=== PATIENT | male | born 1945 | race Caucasian/White ===

== ENCOUNTER 2018-05-26 19:32 | Inpatient (IN) | payer MEDICARE, OTHER ==
[~2018-05-26] VITALS: Ht 172.7 cm; Wt 86.0 kg
[~2018-05-26 19:32] MED LIST: AMLO10TA2 PO; ASPI-696 PO; ATEN50TA41 PO; CLON-275 PO; LEVO750T26 PO; LISI-170 PO; PRED20TA PO; SIMV20TA3 PO
[2018-05-26] MEDS ORDERED: SODIUM CHLORIDE 0.9% 1,000ML IVBOLUS ONE (20:00)
[2018-05-26] MEDS ORDERED: FENTANYL PF 100 MCG/2ML ONE (20:12)
[2018-05-26 20:16] LABS: ALANINE AMINOTRANSFERASE 15 U/L (12-78); ALBUMIN 2.8 g/dL (3.4-5.0); ANION GAP 8 mmol/L (5-15); CALCIUM 8.4 mg/dL (8.5-10.1); CHLORIDE 110 mmol/L (98-107); CREATININE 1.45 mg/dL (0.7-1.3)
[2018-05-26 20:18] LABS: ALKALINE PHOSPHATASE 75 U/L (45-117); BILIRUBIN,TOTAL 0.6 mg/dL (0.2-1.0); TOTAL PROTEIN 6.1 g/dL (6.4-8.2)
[2018-05-26 20:19] LABS: MEAN CORPUSCULAR HEMOGLOBIN 35.2 pg (27.5-34.5); MEAN CORPUSCULAR HGB CONC 34.7 g/dL (33.2-36.2); MEAN CORPUSCULAR VOLUME 101.6 fL (81-97); MEAN PLATELET VOLUME 9.9 fL (7.4-10.4); PLATELET COUNT 207 x10^3/uL (130-400); RED BLOOD COUNT 3.49 x10^6/uL (4.38-5.82); RED CELL DISTRIBUTION WIDTH 12.5 % (9.4-14.8)
[2018-05-26 20:23] LABS: INTERNATIONAL NORMALIZED RATIO 0.99 (0.93-1.1); PROTHROMBIN TIME 10.3 Seconds (9.6-11.5)
[2018-05-26] MEDS ORDERED: PROTAMINE SULFATE 10 MG/ML, 5ML ONE (20:28)
[2018-05-26] MEDS ORDERED: HEPARIN 1,000 UNITS/ML, 30ML ONE (20:28)
[2018-05-26] MEDS ORDERED: HEPARIN 1,000 UNITS/ML, 10ML ONE (20:28)
[2018-05-26] MEDS ORDERED: THROMBIN 20,000 UNIT VIAL TP ONE (20:28)
[2018-05-26] MEDS ORDERED: BACITRACIN 50,000 UNIT ONE (20:29)
[2018-05-26 20:45] LABS: MD YES
[2018-05-26 20:48] LABS: <PLATELET ESTIMATE> ADEQUATE; <PLT MORPHOLOGY> NORMAL PLT MORPH; <RBC MORPHOLOGY> NORMAL; BAND#(MANUAL) 1.31 x10^3/uL; BANDS%(MANUAL) 6 % (0-7); BASOS#(MANUAL) 0.22 x10^3/uL (0-0.1); BASOS% (MANUAL) 1 % (0-1); EOS#(MANUAL) 0.22 x10^3/uL (0.0-0.4); EOS% (MANUAL) 1 % (1-7); LYMPH#(MANUAL) 3.07 x10^3/uL (1-3.4); LYMPHS% (MANUAL) 14 % (22-44); METAMYELOCYTES# (MANUAL) 0.44 x10^3/uL (0-0); METAMYELOCYTES% (MANUAL) 2 % (0-1); MONOS#(MANUAL) 0.66 x10^3/uL (0.3-2.7); MONOS% (MANUAL) 3 % (2-9); MYELOCYTES# (MANUAL) 0.22 x10^3/uL (0-0); MYELOCYTES% (MANUAL) 1 % (0-0); SEG#(MANUAL) 15.77 x10^3/uL (1.8-6.8); SEGS% (MANUAL) 72 % (42-75)
[2018-05-26 20:49] VITALS: BP 92/52
[2018-05-26] MEDS ORDERED: niCARDipine 2.5 MG/ML, 10ML ONE (20:52)
[2018-05-26] MEDS ORDERED: ROCURONIUM 10 MG/ML,10ML ONE (20:52)
[2018-05-26] MEDS ORDERED: FENTANYL PF 250 MCG/5ML ONE (20:52)
[2018-05-26] MEDS ORDERED: MIDAZOLAM 1 MG/ML, 2ML ONE (20:52)
[2018-05-26] MEDS ORDERED: EPINEPHRINE SYRINGE 0.1 MG/ML, 10ML ONE (20:52)
[2018-05-26] MEDS ORDERED: ETOMIDATE 20 MG/10 ML ONE (20:52)
[2018-05-26] MEDS ORDERED: CEFAZOLIN 1,000 MG ONE (20:52)
[2018-05-26] MEDS ORDERED: NITROGLYCERIN/D5W PMX 50 MG/250 ML ONE (20:52)
[2018-05-26] MEDS ORDERED: SODIUM BICARB 8.4%, 50ML SYRINGE ONE ×3 (20:52)
[2018-05-26] MEDS ORDERED: CALCIUM CHLORIDE 10%, 10ML SYR ONE ×3 (20:52)
[2018-05-26] MEDS ORDERED: NOREPINEPHRINE 1 MG/ML, 4ML ONE (20:58)
[2018-05-26 22:17] LABS: MEAN CORPUSCULAR HEMOGLOBIN 31.5 pg (27.5-34.5); MEAN CORPUSCULAR HGB CONC 35.5 g/dL (33.2-36.2); MEAN CORPUSCULAR VOLUME 88.8 fL (81-97); RED BLOOD COUNT 2.12 x10^6/uL (4.38-5.82); RED CELL DISTRIBUTION WIDTH 16.8 % (9.4-14.8)
[2018-05-26 22:40] LABS: BASOPHILS # (AUTO) 0.02 x10^3/uL (0-0.1); BASOPHILS % (AUTO) 0 % (0-1); EOSINOPHILS # (AUTO) 0.12 x10^3/uL (0-0.4); EOSINOPHILS % (AUTO) 1 % (1-7); LYMPHOCYTES % (AUTO) 20 % (22-44); MD NO; MEAN CORPUSCULAR HEMOGLOBIN 31.8 pg (27.5-34.5); MEAN CORPUSCULAR HGB CONC 34.9 g/dL (33.2-36.2); MEAN CORPUSCULAR VOLUME 91.2 fL (81-97); MEAN PLATELET VOLUME 8.1 fL (7.4-10.4); MONOCYTES # (AUTO) 0.51 x10^3/uL (0.2-0.8); MONOCYTES % (AUTO) 6 % (2-9); NEUTROPHILS # (AUTO) 6.64 x10^3/uL (1.8-6.8); NEUTROPHILS % (AUTO) 73 % (42-75); PLATELET COUNT 134 x10^3/uL (130-400); RED BLOOD COUNT 2.09 x10^6/uL (4.38-5.82); RED CELL DISTRIBUTION WIDTH 17.2 % (9.4-14.8)
[2018-05-26 22:48] LABS: MD YES; MEAN PLATELET VOLUME 8.7 fL (7.4-10.4); PLATELET COUNT 85 x10^3/uL (130-400)
[2018-05-26 22:51] LABS: BAND#(MANUAL) 0.09 x10^3/uL; BANDS%(MANUAL) 1 % (0-7); EOS#(MANUAL) 0.34 x10^3/uL (0.0-0.4); EOS% (MANUAL) 4 % (1-7); LYMPH#(MANUAL) 2.81 x10^3/uL (1-3.4); LYMPHS% (MANUAL) 33 % (22-44); MONOS#(MANUAL) 0.17 x10^3/uL (0.3-2.7); MONOS% (MANUAL) 2 % (2-9); SEGS% (MANUAL) 60 % (42-75)
[2018-05-26 22:52] LABS: <PLATELET ESTIMATE> DECREASED; <PLT MORPHOLOGY> NORMAL PLT MORPH; ANISOCYTOSIS 1+
[2018-05-26 23:17] VITALS: BP 99/38
[2018-05-26 23:32] LABS: INTERNATIONAL NORMALIZED RATIO 1.36 (0.93-1.1); PROTHROMBIN TIME 14.1 Seconds (9.6-11.5)
[2018-05-26] MEDS ORDERED: PROPOFOL 100 ML IV PRN (23:34)
[2018-05-26] MEDS ORDERED: LABETALOL 5MG/ML, 20ML IVPush PRN (23:45)
[2018-05-26] MEDS ORDERED: LACTATED RINGERS 1,000 ML IV SCH (23:45)
[2018-05-26] MEDS ORDERED: NITROPRUSSIDE 50 MG in SODIUM CHLORIDE 0.9% 248 ML IV PRN (23:45)
[2018-05-26] MEDS ORDERED: ONDANSETRON 2MG/ML, 2ML IV PRN (23:45)
[2018-05-26] MEDS ORDERED: morphine SULFATE 10 MG/ML, 1ML IV PRN (23:45)
[2018-05-26 23:53] LABS: ALANINE AMINOTRANSFERASE 30 U/L (12-78); ALBUMIN 1.8 g/dL (3.4-5.0); ANION GAP 10 mmol/L (5-15); CALCIUM 9.1 mg/dL (8.5-10.1); CHLORIDE 117 mmol/L (98-107); CREATININE 1.39 mg/dL (0.7-1.3)
[2018-05-26 23:55] LABS: ALKALINE PHOSPHATASE 38 U/L (45-117); BILIRUBIN,TOTAL 0.9 mg/dL (0.2-1.0); TOTAL PROTEIN 3.5 g/dL (6.4-8.2)
[2018-05-27] VITALS (8 sets, daily range): BP systolic 76–130; BP diastolic 40–59
[2018-05-27] MEDS ORDERED: SENNA/DOCUSATE TABLET NG PRN
[2018-05-27] MEDS ORDERED: LACTULOSE 20 GM/30 ML UDC NG PRN
[2018-05-27] MEDS ORDERED: LIDOCAINE-MPF 1%, 2ML ENDO PRN
[2018-05-27] MEDS ORDERED: SODIUM CHLORIDE 0.9% 1,000 ML IV SCH
[2018-05-27] MEDS ORDERED: SENNOSIDES 8.8 MG/5 ML ORAL SOL NG PRN
[2018-05-27] MEDS ORDERED: BISACODYL 10 MG SUPP PR PRN
[2018-05-27] MEDS ORDERED: PHARMACY MAY ADJ FOR RENAL FX MC SCH
[2018-05-27] MEDS: EPINEPHRINE 2 MG in SODIUM CHLORIDE 0.9% 248 ML IV PRN ×3 (00:18→07:16)
[2018-05-27] MEDS: PHENYLEPHRINE 20 MG in SODIUM CHLORIDE 0.9% 248 ML IV PRN ×3 (00:23→06:48)
[2018-05-27] MEDS: CEFAZOLIN PMX 1GM/50ML 50 ML IVPB SCH ×2 (00:25→08:08)
[2018-05-27 00:29] LABS: BASOPHILS # (AUTO) 0.01 x10^3/uL (0-0.1); BASOPHILS % (AUTO) 0 % (0-1); EOSINOPHILS # (AUTO) 0.09 x10^3/uL (0-0.4); EOSINOPHILS % (AUTO) 1 % (1-7); LYMPHOCYTES # (AUTO) 1.15 x10^3/uL (1-3.4); LYMPHOCYTES % (AUTO) 9 % (22-44); MD NO; MONOCYTES # (AUTO) 1.05 x10^3/uL (0.2-0.8); MONOCYTES % (AUTO) 8 % (2-9); NEUTROPHILS # (AUTO) 10.75 x10^3/uL (1.8-6.8); NEUTROPHILS % (AUTO) 82 % (42-75)
[2018-05-27] MEDS: FAMOTIDINE 20 MG/2 ML IV SCH ×2 (00:31→13:02)
[2018-05-27 00:40] LABS: MEAN CORPUSCULAR HEMOGLOBIN 31.1 pg (27.5-34.5); MEAN CORPUSCULAR HGB CONC 34.5 g/dL (33.2-36.2); MEAN CORPUSCULAR VOLUME 90.3 fL (81-97); MEAN PLATELET VOLUME 8.6 fL (7.4-10.4); PLATELET COUNT 123 x10^3/uL (130-400); RED BLOOD COUNT 2.98 x10^6/uL (4.38-5.82)
[2018-05-27 00:57] LABS: INTERNATIONAL NORMALIZED RATIO 1.21 (0.93-1.1); PROTHROMBIN TIME 12.5 Seconds (9.6-11.5)
[2018-05-27] MEDS ORDERED: EPINEPHRINE 1 MG/ML, 1ML ONE (01:00)
[2018-05-27] MEDS ORDERED: CALCIUM CHLORIDE 10%, 10ML SYR ONE (01:00)
[2018-05-27] MEDS ORDERED: SODIUM BICARB 8.4%, 50ML SYRINGE ONE (01:00)
[2018-05-27] MEDS ORDERED: EPINEPHRINE SYRINGE 0.1 MG/ML, 10ML ONE (01:00)
[2018-05-27 01:19] LABS: MICROSCOPIC AUTO
[2018-05-27 01:23] LABS: CULTURE INDICATED? YES
[2018-05-27] MEDS ORDERED: NOREPINEPHRINE 16 MG in SODIUM CHLORIDE 0.9% 234 ML IV PRN (02:00)
[2018-05-27 02:29] LABS: BASOPHILS # (AUTO) 0.02 x10^3/uL (0-0.1); BASOPHILS % (AUTO) 0 % (0-1); EOSINOPHILS # (AUTO) 0.02 x10^3/uL (0-0.4); EOSINOPHILS % (AUTO) 0 % (1-7); LYMPHOCYTES # (AUTO) 1.27 x10^3/uL (1-3.4); LYMPHOCYTES % (AUTO) 11 % (22-44); MD NO; MEAN CORPUSCULAR HEMOGLOBIN 31.4 pg (27.5-34.5); MEAN CORPUSCULAR HGB CONC 34.4 g/dL (33.2-36.2); MEAN CORPUSCULAR VOLUME 91.2 fL (81-97); MEAN PLATELET VOLUME 8.5 fL (7.4-10.4); MONOCYTES # (AUTO) 1.21 x10^3/uL (0.2-0.8); MONOCYTES % (AUTO) 10 % (2-9); NEUTROPHILS # (AUTO) 9.45 x10^3/uL (1.8-6.8); NEUTROPHILS % (AUTO) 79 % (42-75); PLATELET COUNT 124 x10^3/uL (130-400); RED BLOOD COUNT 2.97 x10^6/uL (4.38-5.82); RED CELL DISTRIBUTION WIDTH 17.6 % (9.4-14.8)
[2018-05-27 02:37] LABS: ANION GAP 19 mmol/L (5-15); CALCIUM 8.7 mg/dL (8.5-10.1); CHLORIDE 116 mmol/L (98-107); CREATININE 1.89 mg/dL (0.7-1.3)
[2018-05-27] MEDS ORDERED: SODIUM BICARB 8.4%, 50ML SYRINGE IVPush STA ×2 (03:04→05:14)
[2018-05-27] MEDS ORDERED: SODIUM BICARBONATE 1 MEQ/ML, 50ML VIAL ONE (03:09)
[2018-05-27] MEDS: SODIUM CHLORIDE 0.9% 1,000 ML IV SCH ×2 (03:11→13:40)
[2018-05-27] MEDS ORDERED: SODIUM BICARBONATE 8.4% 150 MEQ in DEXTROSE 5% 1,000 ML IV SCH (03:30)
[2018-05-27] MEDS ORDERED: OMNIPAQUE 350 MG/ML, 100ML BOTTLE ONE (04:27)
[2018-05-27 05:51] LABS: ANION GAP 24 mmol/L (5-15); CALCIUM 7.9 mg/dL (8.5-10.1); CHLORIDE 114 mmol/L (98-107); CREATININE 2.14 mg/dL (0.7-1.3)
[2018-05-27] MEDS: PHENYLEPHRINE 80 MG in SODIUM CHLORIDE 0.9% 242 ML IV PRN ×2 (08:09→13:02)
[2018-05-27] MEDS ORDERED: EPINEPHRINE 16 MG in SODIUM CHLORIDE 0.9% 234 ML IV PRN (09:00)
[2018-05-27] MEDS ORDERED: VASOPRESSIN 100 UNIT in SODIUM CHLORIDE 0.9% 495 ML IV PRN (09:30)
[2018-05-27 09:45] LABS: INTERNATIONAL NORMALIZED RATIO 2.08 (0.93-1.1); PROTHROMBIN TIME 21.3 Seconds (9.6-11.5)
[2018-05-27] MEDS ORDERED: FENTANYL PF 100 MCG/2ML ONE (13:44)
[2018-05-27] MEDS ORDERED: FENTANYL PF 100 MCG/2ML IVPush PRN (14:00)
[2018-05-27] MEDS ORDERED: ATROPINE OPHTH SOLN 1%, 5ML PO PRN (17:30)
[2018-05-27] MEDS ORDERED: LORazepam 2 MG/ML, 1ML IVPush PRN ×2 (17:30)
[2018-05-27] MEDS ORDERED: morphine SULFATE 10 MG/ML, 1ML IVPush PRN ×2 (17:30)
[2018-05-28] MEDS ORDERED: SODIUM BICARBONATE 8.4% 150 MEQ in DEXTROSE 5% 1,000 ML IV SCH (03:30)
== END 2018-05-27 18:06 | disposition expired | DRG 270 ==
LOC: OR 20:26 → CCU 23:09 → OR 05-27 00:04 → CCU 05-27 00:16
PROVIDERS: ADMIT Surgery Vascular Surgery; ATTEND Surgery Vascular Surgery
PROC: 04V00DZ Restriction of Abdominal Aorta with Intraluminal Device, Open Approach (ICD-10-PCS; principal; 2018-05-27)
PROC: 30233L1 Transfusion of Nonautologous Fresh Plasma into Peripheral Vein, Percutaneous Approach (ICD-10-PCS; 2018-05-27)
PROC: 30233N1 Transfusion of Nonautologous Red Blood Cells into Peripheral Vein, Percutaneous Approach (ICD-10-PCS; 2018-05-27)
PROC: 30233R1 Transfusion of Nonautologous Platelets into Peripheral Vein, Percutaneous Approach (ICD-10-PCS; 2018-05-27)
PROC: 30233K1 Transfusion of Nonautologous Frozen Plasma into Peripheral Vein, Percutaneous Approach (ICD-10-PCS; 2018-05-27)
PROC: 5A1935Z Respiratory Ventilation, Less than 24 Consecutive Hours (ICD-10-PCS; 2018-05-27)
PROC: 0BH17EZ Insertion of Endotracheal Airway into Trachea, Via Natural or Artificial Opening (ICD-10-PCS; 2018-05-27)
PROC: 03HY32Z Insertion of Monitoring Device into Upper Artery, Percutaneous Approach (ICD-10-PCS; 2018-05-27)
PROC: 4A133B1 Monitoring of Arterial Pressure, Peripheral, Percutaneous Approach (ICD-10-PCS; 2018-05-27)
PROC: 4A133J1 Monitoring of Arterial Pulse, Peripheral, Percutaneous Approach (ICD-10-PCS; 2018-05-27)
DX: I71.3 Abdominal aortic aneurysm, ruptured (principal); J96.00 Acute respiratory failure, unspecified whether with hypoxia or hypercapnia; E87.2 Acidosis; I74.5 Embolism and thrombosis of iliac artery; N17.9 Acute kidney failure, unspecified; R57.8 Other shock; I73.9 Peripheral vascular disease, unspecified; D72.829 Elevated white blood cell count, unspecified; E78.5 Hyperlipidemia, unspecified; F17.200 Nicotine dependence, unspecified, uncomplicated; I25.10 Atherosclerotic heart disease of native coronary artery without angina pectoris; I10 Essential (primary) hypertension; I45.10 Unspecified right bundle-branch block; J44.9 Chronic obstructive pulmonary disease, unspecified; R57.0 Cardiogenic shock; Z66 Do not resuscitate; Z89.511 Acquired absence of right leg below knee; Z98.61 Coronary angioplasty status; F10.21 Alcohol dependence, in remission
CPT/HCPCS: 36415; 36600; 99291; S0028; 71045; 71275; 74174; 80048; 80053; 81001; 82330; 82803; 82947; 83605; 83690; 83735; 84132; 84295; 84478; 85014; 85018; 85025; 85610; 85730; 86850; 86900; 86923; 87070; 87077; 87081; 87086; 87186; 87205; 93005; 94002; 94003; C1768; J0171; J0690; J1644; J2250; J2704; J2720; J3010; J7070; Q9967; C1781; J2060; J2270; J2370; J7030; J7040; J7050; J7120; P9016; P9017; P9035